=== PATIENT | female | born 1995 | race Caucasian/White ===

== ENCOUNTER 2017-10-21 21:43 | Emergency (ER) | payer OTHER ==
[~2017-10-21] VITALS: Ht 165.1 cm; Wt 82.7 kg
[~2017-10-21 21:43] MED LIST: AUGMENTIN875 MG PO; CEFUROXIME250 MG PO; KETOCONAZOLE200 MG PO; MOTRIN600 MG PO; NAPROXEN500 MG PO; NOHOMEMEDS; NORCO 5/3251 TABLET PO; SPRINTEC1 EACH PO; TRI-SPRINTEC1 EACH PO; ZOFRAN4 MG PO
[2017-10-21 22:12] LABS: APPEARANCE CLEAR ((CLEAR)); BILIRUBIN NEGATIVE; BLOOD NEGATIVE; COLOR STRAW ((YELLOW)); GLUCOSE (STRIP) NEGATIVE; KETONES NEGATIVE; LEUKOCYTES TRACE; NITRITE NEGATIVE; PROTEIN (STRIP) NEGATIVE; SPECIFIC GRAVITY 1.006 (1.000-1.030); UROBILINOGEN 0.2 MG/DL (0.2-1.0)
[2017-10-21 22:28] LABS: HEMATOCRIT 44.5 % (36.0-46.0); HEMOGLOBIN 15.4 G/DL (11.9-15.5); MCH 31.5 PG (29.0-34.0); MCHC 34.6 G/DL (30.0-36.0); PLATELET COUNT 237 K/uL (156-360); RBC DIS.WIDTH-CV 11.8 % (11.8-14.6); RBC DIS.WIDTH-SD 39.4 % (39-53); RED BLOOD COUNT 4.89 M/uL (3.80-5.20); WHITE BLOOD COUNT 7.6 K/uL (4.1-10.2)
[2017-10-21 22:35] LABS: BACTERIA 2+ /HPF; EPITHELIAL CELLS 1+ /HPF; MUCUS NONE SEEN /LPF; RED BLOOD CELLS 0-5 /HPF (0-5); UCUL ADDED? YES; WHITE BLOOD CELLS 0-5 /HPF (0-5)
[2017-10-21 22:40] LABS: ALBUMIN 4.5 g/dL (3.2-4.8); CHLORIDE 107 mEq/L (99-109); POTASSIUM 3.7 mEq/L (3.7-5.4); SODIUM 141 mEq/L (136-147)
[2017-10-21 22:42] LABS: GLUCOSE 95 mg/dL (70-99); TOTAL PROTEIN 7.1 g/dL (6.4-8.3)
[2017-10-21 22:44] LABS: TOTAL BILIRUBIN 0.5 mg/dL (0.0-1.0)
[2017-10-21 22:46] LABS: ALKALINE PHOSPHATASE 65 IU/L (3-129); CREATININE 0.8 mg/dL (0.6-1.3); GFR ESTIMATE (CALCULATED) > 59 mL/min/
[2017-10-21 22:47] LABS: UREA NITROGEN (BUN) 13 mg/dL (9-23)
[2017-10-21 22:48] LABS: AST (GOT) 18 IU/L (2-34)
[2017-10-21 22:49] LABS: ALT (GPT) 14 IU/L (3-49); LIPASE 35 U/L (1.0-51.0)
[2017-10-21 22:55] LABS: QUANTITATIVE HCG < 4.0 MIU/ML
[2017-10-22] MEDS ORDERED: MACROBID100 MG PO (00:14)
[2017-10-22] MEDS ORDERED: ZOFRAN4 MG PO (00:14)
[2017-10-22 00:43] VITALS: BP 122/69
== END 2017-10-22 00:44 | disposition home or self-care (01) ==
LOC: EME 21:43
DX: N39.0 Urinary tract infection, site not specified (principal); J45.909 Unspecified asthma, uncomplicated; R73.03 Prediabetes; E28.2 Polycystic ovarian syndrome; Z86.79 Personal history of other diseases of the circulatory system
CPT/HCPCS: 74177; 80053; 81003; 83690; 84702; 85027; 87086; 99281; 99285; J2405; J3010; J7030

== ENCOUNTER 2017-10-24 15:56 | Emergency (ER) | payer OTHER ==
[~2017-10-24] VITALS: Ht 165.1 cm; Wt 79.5 kg
[~2017-10-24 15:56] MED LIST changes: +MACROBID100 MG PO
[2017-10-24 17:36] VITALS: BP 127/96
== END 2017-10-24 17:37 | disposition home or self-care (01) ==
LOC: EME 15:56
PROC: 2W3JX1Z Immobilization of Right Finger using Splint (ICD-10-PCS; principal; 2017-10-24)
DX: S63.616A Unspecified sprain of right little finger, initial encounter (principal); Y35.91XA Legal intervention, means unspecified, law enforcement official injured, initial encounter; Y92.239 Unspecified place in hospital as the place of occurrence of the external cause; Y99.0 Civilian activity done for income or pay
CPT/HCPCS: 73140; 99281; 99283